=== PATIENT | female | born 1995 | race Caucasian/White ===

== ENCOUNTER 2017-07-07 08:00 | Inpatient (IN) | payer OTHER ==
[2017-07-07 09:29] VITALS: BMI 27.8
[2017-07-07] MEDS ORDERED: ELECTROLYTE-148 SOLN 500 ML IV ONE (10:09)
[2017-07-07] MEDS ORDERED: CITRIC ACID/SODIUM CITRATE 30 ML UNIT-DOSE CUP PO ONE (10:09)
[2017-07-07] MEDS ORDERED: ELECTROLYTE-148 SOLN 1,000 ML IV SCH (10:15)
[2017-07-07] MEDS ORDERED: TUBERCULIN PPD 5 TU/0.1ML SYRINGE (IN PATIENT USE ONLY) ID ONE (11:00)
--- NOTE | 2017-07-07 11:04 | HP ---
Past Medical History - Admission Chief Complaint: Here for repeat c section. History of Present Illness: 22 y/o with h/o prior delivery for arrest of dilation in 2015 here for scheduled repeat delivery. Pt declined TOLAC. uncomplicated. 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 Weeks Gestation by Dates: 40.5 ...EDC by Dates: 07/02/17 ...EDC by Sono: 07/09/17 Heme/Onc: No: Anemia Psych: No: Bipolar, Depression ENT: No: Allergic Rhinitis Endocrine: No: Diabetes Mellitus - Past Surgical History Past Surgical History: Yes: None Hx Myomectomy: No Hx Transabdominal Cerclage: No - Smoking History Smoking history: Never smoked Have you smoked in the past 12 months: No - Alcohol/Substance Use Hx Alcohol Use: No History of Substance Use: reports: None - Social History Usual Living Arrangement: Yes: With Spouse ADL: Independent History of Recent Travel: No Home Medications - Allergies Allergies/Adverse Reactions: Allergies Allergy/AdvReac Type Severity Reaction Status Date / Time codeine AdvReac Vomiting Verified 07/05/17 13:42 - Home Medications Home Medications: Ambulatory Orders Vit/Iron Fumarate/FA [ Tablet] 1 tab PO DAILY 04/28/16 Review of Systems - Review of Systems Constitutional: reports: No Symptoms Eyes: reports: No Symptoms HENT: reports: No Symptoms Neck: reports: No Symptoms Cardiovascular: reports: No Symptoms Respiratory: reports: No Symptoms Gastrointestinal: reports: No Symptoms Genitourinary: reports: No Symptoms Breasts: reports: No Symptoms Reported Musculoskeletal: reports: No Symptoms Integumentary: reports: No Symptoms Neurological: reports: No Symptoms Endocrine: reports: No Symptoms Hematology/Lymphatic: reports: No Symptoms Psychiatric: reports: No Symptoms Physical Exam - Maternity Vital Signs: Vital Signs Temperature 98.7 F 11/27/17 09:00 Pulse Rate 62 07/07/17 09:00 Respiratory Rate 18 07/07/17 09:00 Blood Pressure 110/58 07/07/17 09:00 O2 Sat by Pulse Oximetry (%) Constitutional: Yes: Well Nourished, No Distress, Calm Eyes: Yes: Conjunctiva Clear, EOM Intact HENT: Yes: Atraumatic, Normocephalic Neck: Yes: Trachea Midline Cardiovascular: Yes: Regular Rate and Rhythm Lungs: Clear to auscultation - Abdominal Exam/OB Number of Fetuses: Single Presentation: Vertex Contractions: Yes Regularity: Irregular Intensity: Mild Category: I Accelerations: Uniform Decelerations: None - Vaginal Exam/OB Amniotic Membrane Status: Intact - Physical Exam Psychiatric: Yes: Alert, Oriented Hemorrhage Risk Assessment - Risk Factors Medium Risk Factors: Yes: None High Risk Factors: Yes: None Risk Score: 1 Risk Level: Medium Risk Problem List - Problems (1) Term Code(s): Z34.80 - ENCOUNTER FOR SUPRVSN OF NORMAL , UNSP TRIMESTER (2) History of delivery Code(s): Z98.891 - HISTORY OF UTERINE SCAR FROM PREVIOUS SURGERY Assessment/Plan 22 y/o with SIUP at 39 weeks, for scheduled repeat c section - AFVSS - FHTS cat 1 - NPO, SCDs, dugan catheter - routine care
[2017-07-07] MEDS ORDERED: oxyCODONE HCL 5 MG TABLET PO PRN ×2 (11:06)
[2017-07-07] MEDS ORDERED: IBUPROFEN 800 MG/8 ML IJ IVPB PRN (11:06)
[2017-07-07] MEDS ORDERED: METHYLERGONOVINE MALEATE 0.2 MG/1 ML AMP IM PRN (11:06)
[2017-07-07] MEDS ORDERED: morphine SULFATE/Preservative Free 0.5 MG/ML (1cc Syringe) SPIN ONE (11:09)
[2017-07-07] MEDS ORDERED: OXYTOCIN 20 UNITS in 0.9% NS 20 UNIT/1,000 ML INFUS.BAG IV SCH (11:15)
--- NOTE | 2017-07-07 11:53 | OP ---
Operative Note - Note: Operative Date: 07/07/17 Pre-Operative Diagnosis: prior delivery, declined TOLAC Operation: repeat delivery Findings: normal b/l tubes and ovaries Surgeon: Kizzy Mcdaniel Investigations Director: Agustín Allen Anesthesiologist/WOOD POLISHER: Satya Wilkins Anesthesia: Spinal Specimens Removed: placenta Estimated Blood Loss (mls): 500
--- NOTE | 2017-07-07 20:26 | OP ---
DATE OF OPERATION: 07/07/2017 PREOPERATIVE DIAGNOSIS: Prior delivery, single intrauterine at 39+ weeks, declined trial of labor after . PROCEDURE: Repeat low transverse delivery. SURGEON: Kizzy Mcdaniel DO WEBMETHODS CONSULTANT: AMANDA Thakkar COMPLICATIONS: None. ESTIMATED BLOOD LOSS: 500 mL ANESTHESIA: Spinal by Satya Wilkins MD. SPECIMENS: Placenta and cord blood collection. COUNTS: Sponge, needle, and instrument count reported to be correct. DISPOSITION: Stable to PACU. BRIEF HISTORY AND PROCEDURE: Patient is a 22-year-old, G2, P1 female with a prior history of delivery, who was scheduled for a repeat delivery and was admitted to [facility] on July 07. The consents for the procedure were signed upon admission. The patient was then taken back to the operating room and given spinal anesthesia by Dr. Wilkins. She was placed in the dorsal supine position. A Joshua catheter was placed under sterile conditions. She was prepped and draped in the usual sterile fashion, and a hard timeout was performed. A Pfannenstiel skin incision was created in the skin with a scalpel and carried to the underlying layer of rectus fascia with the Bovie. The fascia was incised on either side of midline with the Bovie, and the fascial incision was carried in a superolateral direction with the Bovie. The fascia was tented upward and dissected off the underlying layer of rectus muscle with the Bovie. The musculature was identified, retracted laterally, and the peritoneum was entered bluntly to allow for adequate room for delivery. The vesicouterine peritoneum was dissected off the anterior uterus and cervix to create a bladder flap. A bladder blade was then inserted to protect the bladder. A transverse incision was created in the lower uterine segment, which was carried in a superolateral direction bluntly. The was then delivered from the LOT position. The anterior and posterior shoulders were delivered with ease, along with the remainder of the infant. The cord was clamped twice and cut in between, and the was taken over to the warmer to be assessed by the neonatology staff. Delayed cord clamping was completed. The placenta was then delivered intact with a 3-vessel cord. It was manually extracted. The uterus was then exteriorized from the abdomen, inspected and cleared of all amniotic membrane and debris. The hysterotomy was reapproximated in a double-layer closure, first using 1 Vicryl in a running locked fashion and the second layer using Biosyn in a running fashion. Bilateral tubes and ovaries were noted to be within normal limits. The posterior cul-de-sac was suctioned. The uterus was placed back in the abdomen. Bilateral gutters were inspected and cleared of all debris. The hysterotomy again was noted to be hemostatic. The peritoneum was reapproximated in a running layer using 2-0 chromic. The musculature was reapproximated in 2 interrupted sutures using 2-0 chromic suture. The fascia was reapproximated using 1 Vicryl in a running fashion. The subcutaneous tissue was irrigated. Any bleeding was cauterized with the Bovie device. The subcutaneous tissue was reapproximated using 0 Biosyn in a running fashion, and the skin was reapproximated in subcuticular fashion using 3-0 Vicryl. Steri-Strips were applied. Sponge, needle and instrument counts were reported to be correct. The patient tolerated the procedure well, is recovering in stable condition in the labor and delivery unit at the time of this dictation. KIZZY MCDANIEL DO /[id number] MTDD
--- NOTE | 2017-07-08 05:07 | PN ---
Post Progress Note - Subjective Subjective: 22 yo status post repeat , seen and evaluated. She c/o incision pain. Post Day: 1 Type of Delivery: Repeat C/S Vital Signs: Vital Signs Temperature 99.4 F 07/08/17 02:00 Pulse Rate 61 07/08/17 02:00 Respiratory Rate 20 07/08/17 04:00 Blood Pressure 109/49 07/08/17 02:00 O2 Sat by Pulse Oximetry (%) 100 07/07/17 12:50 Breast Exam: Yes: Soft Uterus: Yes: Fundus Firm Incision: Yes: Dressing dry and intact Abdomen/GI: Yes: Abdomen soft, Tolerating PO Lochia: Yes: Rubra Lochia, amount: Small Extremities: Yes: Calves non-tender Perineum: Yes: Intact (she's lying in bed) Assessment/Plan Status post repeat Stable Ambulation Analgesia as needed Continue routine post op care
[2017-07-08 08:45] LABS: BASOPHIL 0.4 % (0-2.0); EOSINOPHIL 0.2 % (0-4.5); MCH 26.2 pg (25.7-33.7); MCHC 32.4 g/dl (32.0-36.0); MEAN CELL VOLUME 80.7 fl (80-96); MEAN PLT VOLUME 9.7 fl (7.5-11.1); NEUTROPHILS 81.3 % (42.8-82.8); PLATELET COUNT 215 K/MM3 (134-434); RDW 14.4 % (11.6-15.6); WHITE BLOOD COUNT 12.2 K/mm3 (4.0-10.0)
[2017-07-08] MEDS ORDERED: DIPHTH,PERTUSS(ACELL),TET 0.5 ML DISP.SYRIN IM ONE (09:00)
[2017-07-08] MEDS: PRENATAL VITAMINS W/ FOLIC ACID TABLET (FP) PO SCH (09:56)
--- NOTE | 2017-07-08 10:15 | PN ---
Progress Note (short form) - Note Progress Note: Anesthesia postop note 22 y/o F s/p spinal anesthesia duramorph for section POD#1, vss, pain well controlled, sensory motor intact No anesthesia complications.
[2017-07-08] MEDS ORDERED: BISACODYL 10 MG SUPP.RECT RC PRN (11:06)
[2017-07-08] MEDS: IBUPROFEN 600 MG TABLET (FP) PO PRN ×2 (14:15→23:23)
[2017-07-08] MEDS: ACETAMINOPHEN 325 MG TABLET (FP) PO PRN ×2 (14:16→23:23)
[2017-07-08] MEDS: SIMETHICONE 80 MG TAB.CHEW (FP) PO PRN ×2 (14:17→23:23)
--- NOTE | 2017-07-09 08:23 | DS ---
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 Vital Signs: Vital Signs Temperature 97.8 F 07/08/17 22:00 Pulse Rate 88 07/08/17 22:00 Respiratory Rate 20 07/08/17 22:00 Blood Pressure 96/64 07/08/17 22:00 O2 Sat by Pulse Oximetry (%) 100 07/07/17 12:50 Constitutional: Yes: Well Nourished, No Distress, Calm Eyes: Yes: Conjunctiva Clear, EOM Intact HENT: Yes: Atraumatic, Normocephalic Neck: Yes: Supple, Trachea Midline Cardiovascular: Yes: Regular Rate and Rhythm Respiratory: Yes: Regular, CTA Bilaterally Gastrointestinal: Yes: Normal Bowel Sounds, Soft Internal Exam Deferred: Yes ....Post : Yes: Uterus firm, Uterus non-tender Wound/Incision: Yes: Clean/Dry, Well Approximated, Sutures Intact, Steri Strips Neurological: Yes: Alert, Oriented Psychiatric: Yes: Alert, Oriented Labs: CBC, BMP 07/08/17 08:00 Delivery - Delivery Section: Repeat, Low Flap Transverse Type of Anesthesia: Spinal Episiotomy/Laceration: None EBL (cc): 500 Delivery, Single - Stages of Labor Date of Delivery: 07/07/17 Time of Delivery: 11:21 Date Placenta Delivered: 07/07/17 Time Placenta Delivered: 11:22 - 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 Pt underwent uncomplicated procedure. On post op day 1 pt was ambulating, voiding and had a BM. Bleeding was minimal. Denies CP/SOB/F/C/OBANDO on post op day 2 and was discharged home in stable condition. Condition: Good - Instructions Diet, Activity, Other Instructions: Physical activity Resume your normal everyday activity as tolerated no heavy lifting (more than 15 lbs) or strenuous exercise until seen by your surgeon. You may walk unlimited amounts and climb stairs. You may resume driving the car when you feel safe and comfortable behind the wheel. No sexual activity as instructed for 6 weeks. Wound care If there are tapes on the skin leave them in place. They will peel off in the next 7 to 10 days. Do Not Peel them off. You may shower the day after surgery. If there are tapes present on the skin, you may shower over them. Diet There are no dietary restrictions. Eat healthy, high-fiber foods. Drink 6 to 8 glasses of liquid each day. This will assist in keeping your bowels regular. Pain management You may take Tylenol or Ibuprofen (for example, Motrin, Advil etc.) over the counter for pain. If any pain medication is prescribed to your pharmacy please take for moderate to severe pain. Call MD for any of the following: Severe pain not relieved by medication Fever of 101 or higher Excessive bleeding or drainage on dressing Inability to urinate Referrals: Kizzy Mcdaniel DO [Staff Physician] - 1 Week (for check of incision) Disposition: HOME - Home Medications Comprehensive Discharge Medication List: Ambulatory Orders Vit/Iron Fumarate/FA [ Tablet] 1 tab PO DAILY 04/28/16 Ibuprofen [Motrin -] 600 mg PO QID PRN #28 tablet 07/09/17 Oxycodone HCl/Acetaminophen [Percocet 5-325 mg Tablet -] 1 tab PO Q4H #30 tablet MDD 6 07/09/17
[2017-07-09 08:41] VITALS: BP 108/63; PULSE 72; TEMP 98.4
[2017-07-09] MEDS: PRENATAL VITAMINS W/ FOLIC ACID TABLET (FP) PO SCH (09:31)
[2017-07-09] MEDS: IBUPROFEN 600 MG TABLET (FP) PO PRN (11:31)
[2017-07-09] MEDS: ACETAMINOPHEN 325 MG TABLET (FP) PO PRN (11:32)
[2017-07-09] MEDS: SIMETHICONE 80 MG TAB.CHEW (FP) PO PRN (11:33)
--- NOTE | 2017-07-14 15:15 | PATH ---
Surgical Pathology Report Patient Name: CAL HO Med. Rec. 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 Specimen(s) Received PLACENTA Clinical History , 39.5 weeks previous History of eczema, asthma-exercise induced, history of hyperemesis Final Diagnosis PLACENTA, DELIVERY: FOCALLY DISRUPTED THIRD TRIMESTER PLACENTA WITH SUBCHORIONIC AND INTERVILLOUS FIBRIN DEPOSITION, THREE VESSEL UMBILICAL CORD AND UNREMARKABLE PLACENTAL MEMBRANES. Electronically Signed Irineo Byrne M.D. Gross Description The specimen is received fresh labeled placenta and is a 424 gram, 15.0 x 13.0 x 2.6 cm. placenta with attached membranes and umbilical cord. The attached membranes are bains, translucent with focal opacities and insert marginally. The umbilical cord measures 29 cm. in length and averages 1 cm. in diameter. The cord inserts eccentrically, 2.5 cm. to the nearest margin. No true knots or strictures are identified. Cut surface of the umbilical cord reveals 3 vessels. The surface is oliveira blue with moderate fibrin deposition and appropriate caliber vessels. The maternal surface is red-brown with focal defects. Sectioning reveals red-brown, spongy parenchyma. No lesions are identified. Electronics Supervisor sections are submitted in three cassettes as follows: 1- membrane rolls and umbilical cord; 2-3- full thickness sections of placenta. 07/10/2017 [facility]07/10/2017
== END 2017-07-09 12:45 | disposition home or self-care (01) | DRG 540 ==
LOC: JLDR 09:00 → J3W 13:15
PROVIDERS: ADMIT Obstetrics & Gynecology; ATTEND Obstetrics & Gynecology
PROC: 10D00Z1 Extraction of Products of Conception, Low, Open Approach (ICD-10-PCS; principal; 2017-07-07)
DX: O34.211 Maternal care for low transverse scar from previous cesarean delivery (principal); Z3A.39 39 weeks gestation of pregnancy; Z37.0 Single live birth
CPT/HCPCS: 36415; 85025; 88307-TC; 90715